=== PATIENT | male | born 2000 | race Caucasian/White ===

== ENCOUNTER → 2024-02-24 | Outpatient (CLI) | payer OTHER ==
[~2024-02-24] MED LIST: ALBU17IN2; CLAR5CHW; TYLENOL #3 ELIXIR; TYLENOL ELIXIR
== END ==
LOC: M PLAIMG 13:18
PROVIDERS: ATTEND Physician Assistant
DX: S80.12XD Contusion of left lower leg, subsequent encounter (principal)

== ENCOUNTER 2024-04-05 10:06 | Emergency (ER) | payer OTHER ==
[~2024-04-05] VITALS: Ht 175.3 cm; Wt 77.5 kg
[2024-04-05 10:27] VITALS: BP 117/78; TEMP 97.8; O2SAT 99
== END 2024-04-05 11:19 | disposition left against medical advice (07) ==
LOC: M ED 10:06
DX: Z53.21 Procedure and treatment not carried out due to patient leaving prior to being seen by health care provider (principal)